=== PATIENT | male | born 1940 | race Caucasian/White ===

== ENCOUNTER 2017-02-05 09:16 | Emergency (ER) | payer MEDICARE, MEDICAID ==
[2017-02-05] MEDS ORDERED: TDAP Vaccine 0.5 mL Syr IM ONE (09:30)
[2017-02-05] MEDS ORDERED: Amoxicillin-Clav 875-125 mg Tab PO STA (09:30)
[2017-02-05 09:33] VITALS: TEMP 98.7; O2SAT 97
--- NOTE | 2017-02-05 09:34 | ED PDOC ---
Arrival/HPI - General Chief Complaint: Abnormal Skin Integrity Time Seen by Provider: 02/05/17 09:24 Historian: Patient - History of Present Illness Narrative History of Present Illness (Text): 02/05/17 09:31 71 y/o male, pmh including htn, nkda, last tetanus under 1 year ago, c/o fall and rt. eyebrow laceration x 11 hours. Pt. was sleeping last night, fall from the bed and hit the rt. sided facial/head against the floor, no LOC, able to recall the whole event, didn't come to the ER due to the transportation problem , no fever or chills, no dizziness, no chest pain or shortness of breath prior to fall, admits this is accidental mechanical fall, no night sweat, no rash, no other medical or psychological complaints. Past Medical History - Provider Review Nursing Documentation Reviewed: Yes - Cardiac Hx Cardiac Disorders: Yes Hx Hypertension: Yes - Pulmonary Hx Respiratory Disorders: No - Neurological Hx Neurological Disorder: No - Renal Hx Renal Disorder: No - Endocrine/Metabolic Hx Endocrine Disorders: No - Hematological/Oncological Hx Blood Disorders: No - Integumentary Hx Dermatological Disorder: No - Musculoskeletal/Rheumatological Hx Musculoskeletal Disorders: Yes Hx Arthritis: Yes - Gastrointestinal Hx Gastrointestinal Disorders: No - Genitourinary/Gynecological Hx Genitourinary Disorders: No - Psychiatric Hx Psychophysiologic Disorder: No Hx Substance Use: No - Surgical History Other/Comment: valve replacement Family/Social History - Physician Review Nursing Documentation Reviewed: Yes Family/Social History: Unknown Family HX Smoking Status: Never Smoked Hx Alcohol Use: Yes Frequency of alcohol use: Socially Hx Substance Use: No Allergies/Home Meds Allergies/Adverse Reactions: Allergies No Known Allergies Allergy (Verified 02/05/17 09:21) Review of Systems - Review of Systems Constitutional: absent: Fatigue, Fevers Eyes: absent: Vision Changes ENT: absent: Hearing Changes Respiratory: absent: SOB, Cough Cardiovascular: absent: Chest Pain Gastrointestinal: absent: Abdominal Pain, Nausea, Vomiting Musculoskeletal: absent: Arthralgias, Back Pain, Myalgias Skin: Laceration. absent: Rash, Pruritis, Skin Lesions, Abscess, Ulcer Neurological: Headache. absent: Dizziness, Focal Weakness, Gait Changes, Speech Changes, Facial Droop, Disequilibrium, Seizure Physical Exam Vital Signs Reviewed: Yes Vital Signs Temp Pulse Resp BP Pulse Ox 02/05/17 10:36 69 19 160/90 H 97 02/05/17 09:20 98.7 F 82 16 180/90 H 97 Temperature: Afebrile Blood Pressure: Hypertensive Pulse: Regular Respiratory Rate: Normal Appearance: Positive for: Well-Appearing, Non-Toxic, Comfortable Pain Distress: Moderate Mental Status: Positive for: Alert and Oriented X 3 - Systems Exam Head: Present: Atraumatic, Normocephalic, Other (Facial: +ttp and swelling to the rt. lateral eyebrow with supralateral periorbital swelling along with very old and contaminated laceration wound approx. 1.5cm noted with mild oozing of scanty blood and yellow discharge with no foul smell, no periorbital cellulitis or streaking, no ulcers. ). No: Tenderness, Contusion, Swelling, Ecchymosis, Abrasion, Laceration Pupils: Present: PERRL Extroacular Muscles: Present: EOMI Conjunctiva: Present: Normal Mouth: Present: Moist Mucous Membranes Neck: Present: Normal Range of Motion Respiratory/Chest: Present: Clear to Auscultation, Good Air Exchange. No: Respiratory Distress, Accessory Muscle Use Cardiovascular: Present: Regular Rate and Rhythm, Normal S1, S2. No: Murmurs Abdomen: Present: Normal Bowel Sounds. No: Tenderness, Distention, Peritoneal Signs Back: Present: Normal Inspection Upper Extremity: Present: Normal Inspection. No: Cyanosis, Edema Lower Extremity: Present: Normal Inspection. No: Edema Neurological: Present: GCS=15, CN II-XII Intact, Speech Normal Skin: Present: Warm, Dry, Normal Color. No: Rashes Psychiatric: Present: Alert, Oriented x 3, Normal Insight, Normal Concentration Medical Decision Making ED Course and Treatment: 02/05/17 09:35 -augmentin -CT head and facial -Wound is too old and dirty for closure, explained to the patient already. -wound irrigate with normal saline, clean with betadine, bacitracin and gauze dressing. 02/05/17 10:37 -Normal CT of the head -Unremarkable of the maxillofacial -Discharge home with augmentin, bacitracin ointment, keep the dressing dry and clean for 24 hours, clean the wound twice daily, wound is too dirty and old for closures, follow up with your own pmd and ENT within2 days, return to the ER for any new or worsening signs or symptoms. 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 Disposition/Present on Arrival - Present on Arrival Any Indicators Present on Arrival: No History of DVT/PE: No History of Uncontrolled Diabetes: No Urinary Catheter: No History of Decub. Ulcer: No History Surgical Site Infection Following: None - Disposition Have Diagnosis and Disposition been Completed?: Yes Diagnosis: Eyebrow laceration, Facial injury, Accidental fall from bed Disposition: HOME/ ROUTINE Disposition Time: 09:37 Patient Plan: Discharge Patient Problems: Current Active Problems Problem Status Onset Accidental fall from bed Acute Eyebrow laceration Acute Facial injury Acute Condition: GOOD Additional Instructions: Discharge home with augmentin, bacitracin ointment, keep the dressing dry and clean for 24 hours, clean the wound twice daily, wound is too dirty and old for closures, follow up with your own pmd and ENT within2 days, return to the ER for any new or worsening signs or symptoms. Prescriptions: Amoxicillin/Clavulanate [Augmentin 875 MG-125 MG] 1 tab PO BID #20 tab Bacitracin Ointment [Bacitracin] 1 appful TOP BID #15 g Referrals: Eugene Babb DO [Staff Provider] - Follow up with primary Forms: [employer] ([place])
--- NOTE | 2017-02-05 10:28 | CT ---
PROCEDURE: CT HEAD WITHOUT CONTRAST. HISTORY: fall, laceration COMPARISON: None available. TECHNIQUE: Axial computed tomography images were obtained through the head/brain without intravenous contrast. Radiation dose: Total exam DLP = mGy-cm. This CT exam was performed using one or more of the following dose reduction techniques: Automated exposure control, adjustment of the mA and/or kV according to patient size, and/or use of iterative reconstruction technique. FINDINGS: HEMORRHAGE: No intracranial hemorrhage. BRAIN: No mass effect or edema. No atrophy or chronic microvascular ischemic changes. VENTRICLES: Unremarkable. No hydrocephalus. CALVARIUM: Unremarkable. PARANASAL SINUSES: Unremarkable as visualized. No significant inflammatory changes. MASTOID AIR CELLS: Unremarkable as visualized. No inflammatory changes. OTHER FINDINGS: None. IMPRESSION: Normal CT of the Head.
--- NOTE | 2017-02-05 10:30 | CT ---
PROCEDURE: CT MAXILLOFACIAL BONES WITHOUT CONTRAST HISTORY: rt. lateral eyebrow injury from fall COMPARISON: None TECHNIQUE: Contiguous axial CT images of the maxillofacial bones were obtained. Coronal and sagittal reformats were generated. Radiation dose: Total exam DLP = mGy-cm. This CT exam was performed using one or more of the following dose reduction techniques: Automated exposure control, adjustment of the mA and/or kV according to patient size, and/or use of iterative reconstruction technique. FINDINGS: NASAL BONES: Unremarkable. ORBITS: Unremarkable. PARANASAL SINUSES/ MASTOIDS: Clear. MAXILLA: Unremarkable. MANDIBLE/ TEMPOROMANDIBULAR JOINTS: Unremarkable. SKULL BASE: Unremarkable. TEMPORAL BONES: Middle ears and mastoid grossly unremarkable. OTHER FINDINGS: None. IMPRESSION: Unremarkable non contrast enhanced CT of the maxillofacial bones.
[2017-02-05 10:37] VITALS: BP 160/90; PULSE 69; RESP 19
== END 2017-02-05 10:45 | disposition home or self-care (01) ==
LOC: ED 09:16
DX: S01.111A Laceration without foreign body of right eyelid and periocular area, initial encounter (principal); W06.XXXA Fall from bed, initial encounter; Y93.89 Activity, other specified; Y92.003 Bedroom of unspecified non-institutional (private) residence as the place of occurrence of the external cause